=== PATIENT | male | born 1940 | race Caucasian/White ===

== ENCOUNTER 2016-09-10 09:10 | Inpatient (IN) ==
[2016-09-10] MEDS ORDERED: ASPIRIN PO STA (09:32)
[2016-09-10] MEDS ORDERED: SOLU-MEDROL IV ONE (09:46)
[2016-09-10 09:54] LABS: MANUAL DIFF NEEDED? NO
[2016-09-10 10:01] LABS: BASO% 0.1 % (0.0-0.8); EOS# 0.09 X1000 (0.0-0.7); HEMATOCRIT 43.4 % (42.0-52.0); HEMOGLOBIN 14.6 g/dL (14.0-18.0); IMM GRAN# 0.02 X1000 (0.0-0.04); IMM GRAN% 0.2 % (0.0-0.5); LYMPH# 1.45 X1000 (1.2-3.4); LYMPH% 16.7 % (20.5-51.1); MCH 30.8 PG (27-31); MCHC 33.6 g/dL (33-37); MCV 91.6 FL (81-99); MONO# 0.81 X1000 (0.11-0.59); MONO% 9.3 % (1.7-9.3); NEUT% 72.7 % (42.2-75.2); PLT 313 X1000 (130-400); RBC 4.74 XMIL (4.7-6.1)
[2016-09-10 10:32] LABS: AGAP 15; ALBUMIN 4.1 g/dL (3.5-5.0); ALKALINE PHOSPHATASE 66 U/L (32-122); BUN 17 mg/dL (8-22); CALCIUM 9.5 mg/dL (8.8-10.2); CHLORIDE 99 mmol/L (98-107); CK PROFILE 104 U/L (24-204); COSMO 275; GOT 29 U/L (10-34); GPT 25 U/L (10-44); MAGNESIUM 1.8 mg/dL (1.5-2.7); POTASSIUM 3.9 mmol/L (3.5-5.1); SODIUM 137 mmol/L (136-145); TCO2 23 mmol/L (25-35); TOTAL BILIRUBIN 0.61 mg/dL (0.20-1.00)
[2016-09-10 10:43] LABS: INR 1.05; PROTIME 11.1 Seconds (9.2-11.7); PTT 27.9 Seconds (22.0-36.0)
[2016-09-10] MEDS ORDERED: DUONEB (A & A) INH ONE (11:22)
--- NOTE | 2016-09-10 11:31 | Diag Imaging Result Doc PS360 ---
EXAM: CHEST-PORTABLE HISTORY: shortness of breath TECHNIQUE: Upright AP COMPARISON: None. FINDINGS: The lungs are well expanded. The heart is borderline mildly prominent. Slight vascular distention. No pneumonia. Questionable trace pleural fluid. IMPRESSION: Mild pulmonary edema. Follow-up PA and lateral recommended. Electronically signed by Hank David 09/10/2016 11:29 AM
[2016-09-10] MEDS ORDERED: LASIX IV ONE (12:00)
--- NOTE | 2016-09-10 12:55 | PROVIDER DOCUMENTATION ---
This chart was entered by Erum Monge Scribe, acting as scribe for Mike Persaud MD. HPI-Respiratory General - General Chief Complaint: Shortness of Breath Stated Complaint: sob Time Seen by Provider: 09/10/16 09:30 Source: patient Allergies/Adverse Reactions: Patient Allergies Allergy/AdvReac Type Severity Reaction Status Date / Time "All Blood Pressure AdvReac Unknown Uncoded 09/10/16 10:12 Medications" "All cholesterol Medications" AdvReac Unknown Uncoded 09/10/16 10:13 Home Medications: Home Medication List Medication Instructions Recorded Confirmed Last Taken Type Acetaminophen E.r. [Tylenol 2 cap PO Q8H PRN 09/10/16 09/10/16 Unknown History Arthritis] Aspirin [Aspir-Low] 81 mg PO DAILY 09/10/16 09/10/16 Unknown History Blood Sugar Diagnostic [Freestyle 1 ORDERED 4XDAY 09/10/16 Unknown History Precision Micah] Brimonidine 0.2% Ophth Soln 09/10/16 Unknown History [Alphagan 0.2% Ophth Soln] Budesonide/Formoterol Fumarate 2 puff INH BID 09/10/16 09/10/16 09/10/16 08:00 History [Symbicort 80-4.5 Mcg Inhaler] Budesonide/Formoterol Inhaler 09/10/16 Unknown History [Symbicort 80/4.5 Microgm Inhaler] Cefuroxime Axetil [Cefuroxime] 500 mg PO DAILY 09/10/16 09/10/16 09/10/16 08:00 History Clotrimazole 1% Cream [Lotrimin 1% 09/10/16 Unknown History Cream] Dorzolamide HCl 09/10/16 Unknown History Fluticasone 50 Mcg Nasal [place] 1 spray ELOY DAILY 09/10/16 09/10/16 Unknown History [Flonase] Furosemide 0.5 tab PO DAILY PRN 09/10/16 09/10/16 Unknown History Insulin Regular, Human [Novolin R] 09/10/16 Unknown History Ketotifen Fumarate 5 ml OP 09/10/16 Unknown History Latanoprost 0.005% Oph Soln 09/10/16 Unknown History [Xalatan 0.005% Oph Soln] Loratadine [Children's 10 mg PO DAILY 09/10/16 09/10/16 Unknown History Clear-Atadine] NPH, Human Insulin Isophane 09/10/16 Unknown History [Novolin N] Omeprazole 20 mg PO DAILY 09/10/16 09/10/16 Unknown History Pyridoxine 50 mg PO DAILY 09/10/16 09/10/16 Unknown History - History of Present Illness-Resp Nature of Presenting Problem: Pt is a 75 year old male who came to the ED with a cc of SOB that started last night. Pt reports the SOB started with a cough. Pt reports that he has no chest pain and does not use at home oxygen. Pt reports he has had similar symptoms before. Pt denies fever, chills, and N/V. Has been using pillows at night to breath better. Quality of Pain: reports: none Onset/Duration: reports: last night Timing: reports: still present Exposure: reports: unknown cause Cough Quality/Degree: reports: mild Episode Frequency: rare episodes Current Respiratory Medication Therapy: Initiated none Modifying Factors: improves with: coughing Associated Symptoms: reports: short of breath Similar Symptoms Previously?: Yes Recently seen or treated by another doctor?: No Review of Systems - Adult - REVIEW OF SYSTEMS - ADULT Constitutional: denies: chills, fever Eyes: reports: no symptoms reported Ears, Nose, Mouth & Throat: denies: ear pain, nose pain Cardiovascular: denies: chest pain, heart murmur, orthopnea Respiratory: reports: cough, shortness of breath. denies: dyspnea on exertion, wheezing Gastrointestinal: reports: no symptoms reported Genitourinary: reports: no symptoms reported Musculoskeletal: reports: no symptoms reported Integumentary: reports: no symptoms reported Neurological: reports: no symptoms reported Psychiatric: reports: no symptoms reported Endocrine: reports: no symptoms reported Hematologic/Lymphatic: reports: no symptoms reported Allergic/Immunologic: reports: no symptoms reported All Other Systems: Reviewed and Negative Past History - Adult - PAST MEDICAL HISTORY-ADULT Review of Records: reports: Nursing Assessment Review Major Childhood Illnesses: reports: denies history Cardiovascular: reports: denies history Respiratory: reports: COPD Gastrointestinal: reports: denies history Obstetrical/Gynecological: reports: denies history Genitourinary: reports: denies history Musculoskeletal: reports: denies history Neurological: reports: denies history Endocrine/Immune: reports: Diabetes Other Conditions: reports: denies history - IMMUNIZATION STATUS Childhood Immunizations: See Nurse Assessment Flu Vaccine: See Nurse Assessment - FAMILY HISTORY Family History: reviewed, not pertinent Physical Exam-General - PHYSICAL EXAM-ADULT Initial Vital Signs Reviewed: Yes - CONSTITUTIONAL General Appearance: appears well, alert, no apparent distress - EYES Eyes: PERRL/EOMI, pink conjunctivae - HEAD, EARS, NOSE, MOUTH & THROAT HENMT: normocephalic/atraumatic, moist mucous membranes - NECK Neck: non-tender, full range of motion - RESPIRATORY Respiratory: chest non-tender, rales (mild and scant decrease sounds at base), wheezing - CARDIOVASCULAR Cardiovascular: normal peripheral pulses, regular rate, rhythm - GASTROINTESTINAL (ABDOMEN) Abdominal Exam: normal bowel sounds, non tender, hernia (umbilical) - MUSCULOSKELETAL Back Exam: normal inspection, no CVA tenderness Extremity: normal range of motion, non-tender - SKIN Integumentary: normal color, normal turgor - NEUROLOGIC Neurologic: grossly normal - PSYCHIATRIC Psych/Mental Status: normal mood/affect, normal thought content, normal thought process, oriented x 3 Progress - PLAN OF CARE/RESULTS Progress/Plan/Lab Results: Vital Signs - 8 hr 09/10/16 09:19 09/10/16 10:52 09/10/16 11:53 Temperature 97 F L Pulse Rate 112 H 102 H Respiratory Rate 22 18 Blood Pressure 146/85 139/83 O2 Sat by Pulse Oximetry 100 95 95 Laboratory Results - last 24 hr 09/10/16 09/10/16 09/10/16 09:39 09:39 09:39 WBC 8.70 RBC 4.74 Hgb 14.6 Hct 43.4 MCV 91.6 MCH 30.8 MCHC 33.6 RDW Std Deviation 12.6 Plt Count 313 MPV 12.0 H Immature Gran % (Auto) 0.2 Neut % (Auto) 72.7 Lymph % (Auto) 16.7 L [place] % (Auto) 9.3 Eos % (Auto) 1.0 Baso % (Auto) 0.1 Immature Gran # (Auto) 0.02 Neut # (Auto) 6.32 Lymph # (Auto) 1.45 [place] # (Auto) 0.81 H Eos # (Auto) 0.09 Baso # (Auto) 0.01 PT INR PTT (Actin FS) Sodium 137 Potassium 3.9 Chloride 99 Carbon Dioxide 23 L Anion Gap 15 BUN 17 Creatinine 0.9 Estimated GFR/1.73 m2 > 60 BUN/Creatinine Ratio 19 Glucose 87 Calculated Osmolality 275 Calcium 9.5 Magnesium 1.8 Total Bilirubin 0.61 AST 29 ALT 25 Alkaline Phosphatase 66 Creatine Kinase 104 Troponin T Dld-O-Hoialufnnqz Pept 482 H Total Protein 7.0 Albumin 4.1 Globulin 2.9 Albumin/Globulin Ratio 1.4 09/10/16 09/10/16 09:39 09:39 WBC RBC Hgb Hct MCV MCH MCHC RDW Std Deviation Plt Count MPV Immature Gran % (Auto) Neut % (Auto) Lymph % (Auto) [place] % (Auto) Eos % (Auto) Baso % (Auto) Immature Gran # (Auto) Neut # (Auto) Lymph # (Auto) [place] # (Auto) Eos # (Auto) Baso # (Auto) PT 11.1 INR 1.05 PTT (Actin FS) 27.9 Sodium Potassium Chloride Carbon Dioxide Anion Gap BUN Creatinine Estimated GFR/1.73 m2 BUN/Creatinine Ratio Glucose Calculated Osmolality Calcium Magnesium Total Bilirubin AST ALT Alkaline Phosphatase Creatine Kinase Troponin T < 0.010 [id number]-C-[id number] Pept Total Protein Albumin Globulin Albumin/Globulin Ratio Orders Category Date Time Status Cardiac Monitoring DIRECTED Care 09/10/16 09:32 Active Oxygen Therapy- ED Nursing DIRECTED Care 09/10/16 09:32 Active Saline Loc NOW Care 09/10/16 09:32 Active CHEST-PORTABLE [RAD] Stat Exams 09/10/16 10:47 Completed CBC WITH ELECTRONIC DIFF [HEME] Stat Lab 09/10/16 09:39 Completed CK PROFILE [SP CHEM] Stat Lab 09/10/16 09:39 Completed COMPREHENSIVE METABOLIC PANEL [CHEM] Stat Lab 09/10/16 09:39 Completed MAGNESIUM [CHEM] Stat Lab 09/10/16 09:39 Completed PRO B-NATRIURETIC PEPTIDE Stat Lab 09/10/16 09:39 Completed PROTIME WITH INR [COAG] Stat Lab 09/10/16 09:39 Completed PTT [COAG] Stat Lab 09/10/16 09:39 Completed TROPONIN T Stat Lab 09/10/16 09:39 Completed Albuterol 2.5MG/Ipratrop 0.5MG [Duoneb (A & A)] Med 09/10/16 11:22 Discontinued 3 ml INH NOW ONE Aspirin Med 09/10/16 09:32 Discontinued 325 mg PO STAT STA Furosemide [Lasix] Med 09/10/16 12:00 Discontinued 20 mg IV NOW ONE Methylprednisolone Sod Succ [Solu-Medrol] Med 09/10/16 09:46 Discontinued 125 mg IV NOW ONE Aerosol Treatments Routine Oth 09/10/16 11:22 Completed Aerosol Treatments Stat Oth 09/10/16 11:22 Completed EKG [EKG] Stat Ther 09/10/16 09:28 Ordered Result Diagrams: 09/10/16 09:39 09/10/16 09:39 - REASSESSMENT Reassessment #1 Time Reassessed: 12:06 (making pt aware of decision to admit) Status: other - EKG 1 Time of EKG reading by physician:: 09:22 EKG Read and Signed by:: Mike Persaud EKG Interpretation (*Must complete 3 of following elements*): Abnormal Rate: 116 (w/ occasional premature ventricular complexes and fusion complexes ; possible left atrial enlargement; ST and T wave abnormality, consider lateral ischemia) Rhythm: sinus tachycardia w/ occasional premature ventricular complexes - XRAY 1 XRAY Study: Chest (mild pulmonary edema.) - CONSULTS/PCP/HOSPITALIST Notification Consult Disposition: other (Spoke with Issa ([facility]) for Dr. Vasquez, made aware of laborator yresults, imaging and treatment while in ED. Will accept on behalf of Dr. Vasquez.) Departure - Departure Time of Disposition Decision: 12:12 DIAGNOSIS: CHF (congestive heart failure) Disposition: ADMITTED INPATIENT 09 Certified Medical Emergency: Emergent Condition: Stable Referrals and Follow-Ups: Fidel Tang MD [Primary Care Provider] - - Critical Care Note This patient required my direct & personal management of CC.: No This chart was documented by the indicated scribe, (Erum Monge Scribe) and accurately reflects the services I performed and decisions made by me, Mike Persaud MD, as attested by the provider's signature.
[2016-09-10] MEDS ORDERED: DUONEB (A & A) INH PRN (13:08)
--- NOTE | 2016-09-10 13:28 | HISTORY AND PHYSICAL ---
HISTORY OF PRESENT ILLNESS: States that about 3 weeks ago he noticed a little more swelling in his ankles and feet. Denies any chest pain or palpitations. But last night he felt a little bit short of breath, took a breathing treatment, and went to bed. A couple hours later he woke up and was very short of breath and had to sit up to get some relief, consistent with paroxysmal nocturnal dyspnea and has a degree of orthopnea at the present time. Still denies any chest pain. PAST MEDICAL HISTORY: Diabetes mellitus type 2. He has been treated for hypertension but did not tolerate the medicine, so does not believe he has hypertension. He has COPD and has been treated for that. He is followed by Dr. Fidel Tang. Recently I think his listed medicines were changed because of the swelling in his feet. He has definitely had swelling and gain some fluid weight. He has had eye surgery in the right side. It sounds like it was possibly a retinal venous occlusion, but he had surgery and they removed the clot I believe. FAMILY HISTORY: Noncontributory. His mother of old age. Father of congestive heart failure though. SOCIAL HISTORY: Negative for tobacco. Negative for ethanol. Has been 57 years. REVIEW OF SYSTEMS: General: He has gained some weight, water weight in the last 3 weeks he believes. HEENT: Unremarkable. Respiratory: Increased orthopnea in the last 24 hours. It sounds like there may have been a slight increase in dyspnea on exertion over the last 3 weeks, increased pedal edema. Cardiovascular: No chest pain or tachy palpitation. GI/: No gross hematuria or dysuria. Musculoskeletal/Neurologic: No focal complaints. PHYSICAL EXAMINATION: VITAL SIGNS: In the emergency room, temperature 97 degrees, pulse 102, respirations 18, blood pressure 139/83. HEENT: Pupils are equal and round. NECK: CVP is about 10 cm of water pressure from the angle of Tomi. CARDIOVASCULAR: He does have an S3 gallop. Regular rhythm and rate. PMI nondisplaced. Carotid, radial, femoral pulses 2+ and symmetrical. No carotid bruits. ABDOMEN: Soft. SKIN: Warm and dry. EXTREMITIES: At this time he has at best trace edema from the ankle to mid rowley. LABS: White count 8,700, hematocrit 43, platelet count 313,000. Sodium 137, potassium 3.9, chloride 99, BUN 17, creatinine 0.9, blood sugar 87, magnesium 1.8, albumin 4.1. Protime 11.1, PTT 27. Chest x-ray: Mild pulmonary edema. Follow up PA and lateral recommended. Lungs were well expanded. Heart borderline mildly prominent. Slight vascular distention. ASSESSMENT AND PLAN: 1. Paroxysmal nocturnal dyspnea, pulmonary venous hypertension. This is fairly new onset. We need to evaluate his left ventricular function. I am going to diurese a little bit and also see if we can adjust his medications. Ask cardiology to evaluate. Since this is new onset have to consider possibility of ischemia. His EKG is nonspecific. There are nonspecific ST- segment deviations, mainly depression in the anterior, lateral, inferior leads. Does appear in sinus rhythm. 2. Diabetes mellitus type 2. Will check his pattern sugars. Will check hemoglobin A1c in the morning. We will also check T4, TSH, B12, and folate in the morning given new onset of pulmonary venous hypertension. 3. Underlying chronic obstructive pulmonary disease. Continue his inhalers. cc: Calvin Vasquez MD
[2016-09-10] MEDS: LOVENOX SUBQ SCH (14:42)
[2016-09-10] MEDS: DUONEB (A & A) INH SCH ×3 (15:04→22:52)
[2016-09-10] MEDS: HUMALOG SUBQ SCH ×3 (16:48→21:19)
[2016-09-10] MEDS: PRILOSEC PO SCH ×2 (19:36→21:20)
[2016-09-10] MEDS: LASIX IV SCH (19:39)
[2016-09-10] MEDS ORDERED: SYMBICORT 80/4.5 MICROGM INHALER INH SCH (21:00)
[2016-09-11 00:52] LABS: MAGNESIUM 1.8 mg/dL (1.5-2.7); POTASSIUM 4.1 mmol/L (3.5-5.1)
[2016-09-11] MEDS: DUONEB (A & A) INH SCH ×5 (04:52→19:27)
[2016-09-11 05:15] LABS: HEMATOCRIT 40.2 % (42.0-52.0); HEMOGLOBIN 13.3 g/dL (14.0-18.0); MCH 31.2 PG (27-31); MCHC 33.1 g/dL (33-37); MCV 94.4 FL (81-99); MPV 12.3 FL (7.4-10.4); RBC 4.26 XMIL (4.7-6.1)
--- NOTE | 2016-09-11 05:23 | EKG Report ---
Test Performed on : 09/10/2016 11:29:57 PM Test Reason : Rhythm change Blood Pressure : / mmHG Vent. Rate : 085 BPM Atrial Rate : 085 BPM P-R Int : 186 ms QRS Dur : 116 ms QT Int : 392 ms P-R-T Axes : 060 -10 177 degrees QTc Int : 466 ms Normal sinus rhythm. Possible Left atrial enlargement Incomplete left bundle branch block T wave abnormality, consider lateral ischemia Prolonged QT Abnormal ECG When compared with ECG of 10-SEP-2016 09:22, Significant changes have occurred Confirmed by Danielle MURRAY, Ziggy Agrawal ([id number]) on 09/11/2016 8:21:04 AM
[2016-09-11 05:27] LABS: HEMOGLOBIN A1C 7.7 % (4.8-6.0)
--- NOTE | 2016-09-11 05:30 | EKG Report ---
Test Performed on : 09/10/2016 09:22:01 AM Test Reason : Blood Pressure : / mmHG Vent. Rate : 116 BPM Atrial Rate : 116 BPM P-R Int : 170 ms QRS Dur : 110 ms QT Int : 338 ms P-R-T Axes : 061 -15 109 degrees QTc Int : 469 ms Sinus tachycardia. with occasional premature ventricular complexes. and fusion complexes Possible Left atrial enlargement ST \T\ T wave abnormality, consider lateral ischemia Abnormal ECG No previous ECGs available Unconfirmed Result
[2016-09-11 05:52] LABS: AGAP 13; BUN 26 mg/dL (8-22); CHLORIDE 98 mmol/L (98-107); COSMO 287; POTASSIUM 4.6 mmol/L (3.5-5.1); SODIUM 136 mmol/L (136-145); TCO2 25 mmol/L (25-35)
[2016-09-11] MEDS: HUMALOG SUBQ SCH ×4 (06:29→20:28)
[2016-09-11] MEDS: LASIX IV SCH ×2 (06:29→18:03)
--- NOTE | 2016-09-11 07:35 | Diag Imaging Result Doc PS360 ---
EXAM: CHEST-2 VIEWS HISTORY: new onset chf TECHNIQUE: PA and lateral chest COMMENT: There is a prominent nipple shadow on the left. The lungs are slightly better expanded and clear than on 09/10/2016. There is diminishment in the interstitial opacities present previously. IMPRESSION: Improved pulmonary edema and left pleural effusion. Electronically signed by Leandro Lam 09/11/2016 7:33 AM
[2016-09-11] MEDS ORDERED: TYLENOL ARTHRITIS PO PRN (08:15)
[2016-09-11] MEDS ORDERED: CEFTIN PO SCH ×2 (09:00→21:00)
[2016-09-11] MEDS: ASPIRIN EC PO SCH (10:01)
[2016-09-11] MEDS: ALPHAGAN 0.2% OPHTH SOLN RIGHT EYE SCH ×3 (10:03→16:02)
[2016-09-11] MEDS: TRUSOPT 2% OPH SOLN BOTH EYES SCH ×2 (10:03→20:35)
[2016-09-11] MEDS: HUMULIN N SUBQ SCH (10:04)
[2016-09-11] MEDS: FLONASE NAS SCH (10:05)
--- NOTE | 2016-09-11 12:21 | CONSULTATION ---
DATE OF CONSULTATION: 09/11/2016 INDICATION FOR THE CONSULTATION: Shortness of breath. HISTORY OF PRESENT ILLNESS: Mr. Andrade is a 75-year-old gentleman with a history of diabetes who normally follows with Dr. Fidel Tang. He reports issues with shortness of breath for several years but presented to the ER for worsening of this the evening of Saturday night into Saturday morning. That evening he had significant shortness of breath that occurred upon lying down. He would sit back in an upright position and regain his breath within a few minutes. This would happen repetitively throughout the night and subsequently he just ended up staying up all night in an upright position. He has had no chest pain. He did report some issues with some lower extremity edema within the last week but has p.r.n. Lasix for this and does not think that has been any worse. He has had no change in his eating habits lately and no recent fevers. PAST MEDICAL HISTORY: 1. Significant for type 2 diabetes. 2. Hypertension. 3. COPD. SOCIAL HISTORY: Negative for tobacco or alcohol. He is . He has a daughter and son-in- law present in the room. REVIEW OF SYSTEMS: A 10 system review of systems is negative except for those things mentioned in HPI. PHYSICAL EXAMINATION: Vital Signs: He is afebrile. His heart rate is in the 90s to low 100s. Blood pressure 112/61. General: No acute distress. HEENT: Oropharynx is moist. Normal dentition. His eye examination shows pink conjunctivae and white sclerae. Neck: Examination shows no obvious thyromegaly or thyroid tenderness. Cardiovascular: He is in a regular rate and rhythm. He has no obvious murmurs. No S3. No S4. He has trace to minimal bilateral lower extremity edema in the lower one-third of his rowley. Chest: Exam is clear bilaterally. No increased work of breathing. Abdomen: Soft, nontender, nondistended. No obvious organomegaly. Skin Exam: Warm and dry throughout any rashes. Neurological: He is moving all extremities well. Cranial nerves II through XII are intact without any sensation deficits. PERTINENT DATA: He had a chest x-ray this morning showing improved pulmonary edema with a left- sided pleural effusion. He had an electrocardiogram performed demonstrating sinus rhythm. He has a rate of 85 beats per minute. He has no obvious signs of infarct. His laboratory data shows a white count of 9.9, his hematocrit is 40, his platelet count is 288,000. Sodium 136, potassium 4.6, his BUN is 26, creatinine 0.9. His proBNP was 482. His cardiac enzymes are negative times multiple sets. ASSESSMENT: New onset heart failure. PLAN: I reviewed his echocardiogram which seemed to show mild to moderate reduction in his ejection fraction with global hypokinesis. I have recommended cardiac catheterization to further delineate his coronary anatomy considering his risk factors and his new onset of heart failure. He seems to have diuresed well and reports symptom improvement. He is negative around 3.2 L thus far for the course of the hospitalization. However, he has no in intake tallied. For now, we will request a left heart catheterization to be performed. Risks, benefits and alternatives have been explained to the patient and he agrees to proceed with this plan of action. cc: Valeriy Marques MD
[2016-09-11] MEDS ORDERED: HEPARIN 1000 UNITS/NS 2,000 UNIT/1,000 ML IV.SOLN ONE (13:38)
[2016-09-11] MEDS: LOVENOX SUBQ SCH (13:38)
--- NOTE | 2016-09-11 13:48 | PROGRESS NOTE ---
DATE: 09/11/2016 SUBJECTIVE: Today Mr. Andrade referred to be doing fine. According to him, the shortness of breath has significantly improved. OBJECTIVE: Vital signs: Blood pressure is 112/61, pulse of 97, respirations 18, temperature is 98.7. General: Mr. Andrade is a 75-year-old male. He was sitting up on the side of the bed, was not in any distress. HEENT: Mucosa is pink and moist. Anicteric. Acyanotic. Neck: Supple. Chest: Good air entry bilateral. There are a few bibasilar crepitations. Cardiovascular: Regular rate and rhythm. No murmurs. Abdomen: Distended, but nontender. Extremities: No pedal edema. 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 No focal neurological deficit. LABORATORY DATA: 1. WBC is 9.97, hemoglobin is 13.3, platelet count of 288. 2. Chemistry is reviewed. Significant is the glucose of 277. A1c is 7.7. Folate is 4.9. DIAGNOSTIC DATA: 1. EKG did show normal sinus rhythm with possible intraventricular conduction delay. 2. A chest x-ray this morning shows some improvement in the pulmonary edema. ASSESSMENT: 1. Acute respiratory distress secondary to pulmonary edema from congestive heart failure. 2. New onset congestive heart failure. 3. Folate deficiency. 4. Diabetes mellitus with A1c of 7.9. 5. History of chronic obstructive pulmonary disease. PLAN: So, in general I think Mr. Andrade is doing a whole lot better. Then, there was an echo done that was still pending the report, but there is a plan to do a left heart catheterization on him. cc: Luis Carlos Cardoza MD
[2016-09-11] MEDS ORDERED: HEPARIN ONE (13:58)
[2016-09-11] MEDS ORDERED: CLAVE TWINSITE 32 IN 11959 ONE (14:21)
[2016-09-11] MEDS ORDERED: NS 1,000 ML ONE (14:21)
[2016-09-11] MEDS ORDERED: CLAVE PUMP SET NO FILTER 12260 ONE (14:21)
[2016-09-11] MEDS ORDERED: VERSED ONE (14:39)
[2016-09-11] MEDS ORDERED: DILAUDID ONE (14:39)
--- NOTE | 2016-09-11 15:31 | ECHO REPORT ---
ORDER DATE: 09/11/2016 INTERPRETING PHYSICIAN: Dr. Barrera Santiago. ECHOCARDIOGRAPHIC MEASUREMENTS: 1. Interventricular septum 1.3 cm. 2. Left ventricular posterior wall 1.2 cm. 3. Diastolic diameter 5.8 cm. 4. Left atrium 4.4 cm. 5. Aorta 3.0 cm SUMMARY OF THE 2-DIMENSIONAL IMAGIN. The aortic valve leaflets are sclerosed, trileaflet, opening normally. Pulmonic valve was normal. There is trace pulmonary regurgitation. 2. Normal left ventricular cavity size. Mild left ventricular hypertrophy. Estimated ejection fraction of 25%-30%. Endocardium not well visualized in all views. Would recommend MUGA scan to accurately assess systolic function. 3. There is moderate eccentric mitral regurgitation. There is mild tricuspid regurgitation. Peak velocity across the tricuspid valve was 2.7 m/sec. Pulmonary artery systolic pressure of 40 mmHg. 4. There is no aortic stenosis or regurgitation. 5. There is no pericardial effusion or obvious intracardiac mass or thrombus seen. cc: MD Roldan López CRNP
--- NOTE | 2016-09-11 15:38 | CARDIAC CATH REPORT ---
PROCEDURE NAME: - INDICATION: Systolic heart failure. PROCEDURES PERFORMED: 1. Left heart catheterization. 2. Selective coronary angiography. PROCEDURE IN DETAIL: Mr. Andrade was brought to the catheterization laboratory in fasting state. He was anesthetized over the right radial artery after Calvin's test proved adequate. A 5-Finnish sheath was placed via Seldinger technique. Radial cocktail was administered. Sheaths and catheters were introduced and hemodynamic measurements made in the ascending and thoracic aorta. Coronary angiography was performed in multiple views using JL3.5 and JR4 diagnostic catheters. Left heart catheterization, left ventriculogram was performed using the JR4. At conclusion of procedure, sheaths and catheters were removed. TR band was inflated at 8 mL of air. Good capillary refill. Good hemostasis. No apparent complications. FINDINGS: 1. The left main appears normal. 2. Left anterior descending has minimal luminal irregularities noted throughout the entire length of the left anterior descending. No significant occlusions. 3. Circumflex originates from the left main and appeared normal throughout its course. 4. Right coronary originates from the right coronary cusp. There is a 20% to 30% smooth proximal lesion with minimal luminal irregularities noted elsewhere. 5. Aortic blood pressure is 91/59 with a mean of 71. Left ventricle pressure is 91/10 with an LVEDP of 19. 6. The left ventricular systolic function was severely reduced at around 15% to 20% with severe global hypokinesis. ASSESSMENT: Mr. Andrade is a 75-year-old white male who presented with orthopnea and pulmonary edema. Left heart catheterization was performed to evaluate his new onset systolic heart failure. PLAN: The patient has no flow-limiting lesions. His heart failure appears to be nonischemic in nature. We will continue with medication titrations. He is on IV Lasix. I will add in lisinopril 5 mg at bedtime. Further medication adjustments to follow. cc: Valeriy Marques MD
[2016-09-11] MEDS: SYMBICORT 80/4.5 MICROGM INHALER INH SCH (19:27)
[2016-09-11] MEDS: PRILOSEC PO SCH (20:32)
[2016-09-11] MEDS ORDERED: HUMULIN R SUBQ SCH (21:00)
[2016-09-11] MEDS ORDERED: PRINIVIL PO SCH (21:00)
[2016-09-11] MEDS ORDERED: XALATAN 0.005% OPH SOLN OPH SCH (21:00)
[2016-09-11] MEDS ORDERED: HUMULIN N SUBQ SCH (21:00)
[2016-09-12 05:11] LABS: HEMATOCRIT 38.1 % (42.0-52.0); HEMOGLOBIN 12.6 g/dL (14.0-18.0); MCH 31.6 PG (27-31); MCHC 33.1 g/dL (33-37); MCV 95.5 FL (81-99); MPV 12.1 FL (7.4-10.4); RBC 3.99 XMIL (4.7-6.1)
[2016-09-12 05:58] LABS: AGAP 14; BUN 20 mg/dL (8-22); CALCIUM 8.9 mg/dL (8.8-10.2); CHLORIDE 98 mmol/L (98-107); COSMO 284; POTASSIUM 3.7 mmol/L (3.5-5.1); SODIUM 141 mmol/L (136-145); TCO2 29 mmol/L (25-35)
[2016-09-12] MEDS: LASIX IV SCH (06:16)
[2016-09-12] MEDS: HUMALOG SUBQ SCH ×2 (06:20→12:07)
[2016-09-12] MEDS: DUONEB (A & A) INH SCH ×2 (07:37→11:14)
[2016-09-12] MEDS: SYMBICORT 80/4.5 MICROGM INHALER INH SCH (07:37)
[2016-09-12] MEDS: TRUSOPT 2% OPH SOLN BOTH EYES SCH (08:50)
[2016-09-12] MEDS: ASPIRIN EC PO SCH (08:51)
[2016-09-12] MEDS: ALPHAGAN 0.2% OPHTH SOLN RIGHT EYE SCH ×2 (08:53→12:09)
[2016-09-12] MEDS: FLONASE NAS SCH (08:54)
[2016-09-12] MEDS ORDERED: TOPROL XL PO SCH (09:00)
[2016-09-12] MEDS: HUMULIN N SUBQ SCH (09:02)
[2016-09-12] MEDS ORDERED: NS 500 ML ONE (12:06)
[2016-09-12 12:07] VITALS: BP 108/56
[2016-09-12] MEDS: LOVENOX SUBQ SCH (13:48)
--- NOTE | 2016-09-12 15:09 | PROGRESS NOTE ---
DATE: 09/12/2016 SUBJECTIVE: Mr. Andrade reports he is doing well this morning. He is breathing much better. No orthopnea. OBJECTIVE: PHYSICAL EXAMINATION: Vital Signs: He is afebrile. Heart rate of 84. His blood pressure is 108/56. His systolics seem to be in the 90s to low 100s. His I's and O's over the course of the hospitalization have been negative around roughly 5 L. General: He is in no acute distress. Cardiovascular: He is in a regular rate and rhythm. He has no murmurs, no S3. He has no lower extremity edema. Chest: Exam is clear bilaterally. He has no increased work of breathing. Abdomen: Soft, nontender. No obvious organomegaly. PERTINENT DATA: His white count is 8.5, his hematocrit is 38. His sodium is 141, BUN 20, creatinine 0.9. ASSESSMENT: Nonischemic cardiomyopathy. PLAN: I agree with the plan for discharge today. The patient has been initiated on a low dose of Toprol at 25 mg and it has been initiated on lisinopril 5 mg at bedtime. I would continue on his oral Lasix as has been in place. He will follow up with me in the office within the next month. cc: Valeriy Marques MD
--- NOTE | 2016-09-12 16:35 | DISCHARGE SUMMARY ---
ADMISSION DATE: 09/10/2016 DISCHARGE DATE: 09/12/2016 DATE OF ADMISSION: 09/10/2016. DATE OF DISCHARGE: 09/12/2016. CONSULTATIONS: Dr. Valeriy Marques with Cardiology. PERTINENT PROCEDURES: Left heart catheterization performed on 09/11/[address] Valeriy Marques: Showed no flow-limiting lesions. Heart failure appears to be nonischemic in nature. Continue with medication titration and add lisinopril 5 mg at bedtime and follow-up on an outpatient basis. DISCHARGE DIAGNOSES: 1. Acute respiratory distress secondary to pulmonary edema from congestive heart failure, improved. 2. New onset congestive heart failure, improved. 3. Folate deficiency. Continue supplementation. 4. Diabetes mellitus with hemoglobin A1c of 7.9, continue with home medicines. 5. Chronic obstructive pulmonary disease without exacerbation. 6. Severe Non Ischemic Dilated Cardiomyopathy. HOSPITAL COURSE: Briefly, Mr. Andrade is a 75-year-old male who carries a past medical history of: 1. Diabetes mellitus type 2. 2. Hypertension. 3. Chronic obstructive pulmonary disorder. Followed by Dr. Fidel Tang. The patient presented to the emergency department with 3 weeks of increased swelling in his ankles and feet. He went to see his primary care doctor, where they did some medication adjustments. On the night of his admission, the patient woke up in the night. He was very short of breath. He had to sit up to get some relief consistent with PND and a degree of orthopnea without any anginal symptoms. The patient was admitted with a cardiology consult. Started on IV Lasix. He underwent an echocardiogram, as well as a left heart catheterization that showed no flow- limiting lesions, heart failure that appears to be nonischemic in nature and we will continue with medication titration and added lisinopril 5 mg at bedtime. His left ventricular systolic function was severely reduced around 15-25%, with severe global hypokinesis. The patient was watched overnight after his heart catheterization. He is stable for discharge home today to follow up with Cardiology. VITAL SIGNS: Temperature is 96.9 degrees, heart rate 84, respirations 20, blood pressure 108/56, O2 is 100% on room air. DISCHARGE DIET: Healthy heart. DISCHARGE MEDICATIONS: 1. Tylenol arthritis. 2. Aspirin. 3. Freestyle precision strips. 4. Alphagan ophthalmic solution. 5. Symbicort. 6. Cefuroxime. 7. Lotrimin cream. 8. Dorzolamide. 9. Flonase. 10. Lasix. 11. Novolin R subcutaneous daily. 12. Novolin R subcutaneous at bedtime. 14. Fumarate ophthalmic drops. 15. Prinivil 5 mg p.o. at bedtime. 16. Claritin #6. 17. Metoprolol-XL 25 mg p.o. daily. 18. Prilosec 20 mg p.o. at bedtime. 19. Pyridoxine 50 mg p.o. daily. FOLLOWUP: The patient is being discharged home. He will follow up with his primary care physician, Dr. Fidel Tang, as well as Dr. Valeriy Marques on 09/27/2016 at 10: 30 a.m. The patient will also need a BMP in 1 week and review labs with Dr. Tang. DISCHARGE INSTRUCTIONS: The patient can return to the emergency department for any worsening of symptoms. DISCHARGE TIME: 30 minutes. This is FRANCISCO J Moreno, doing a discharge summary for Dr. Cardoza. Dictated by FRANCISCO J Moreno for Luis Carlos Cardoza MD cc: MD Fidel Villela MD [facility]
[2016-09-13] MEDS ORDERED: LASIX PO SCH (09:00)
== END 2016-09-12 15:25 | disposition home or self-care (01) ==
LOC: ED 09:10 → SUATTDRO 16:01 → 3S 16:01
PROVIDERS: ATTEND Internal Medicine